=== PATIENT | male | born 1960 | race American Indian/Alaskan Native ===

== ENCOUNTER 2020-08-11 10:36 | Day surgery (SDC) | payer BC ==
[2020-08-11] MEDS ORDERED: LACTATED RINGERS 1,000 ML IV SCH (11:15)
[2020-08-11] MEDS ORDERED: MIDAZOLAM 2 MG/2 ML INJ IV ONE (11:52)
[2020-08-11] MEDS ORDERED: HYDROmorphone 1 MG/1 ML INJ IV PRN (11:53)
[2020-08-11] MEDS ORDERED: ONDANSETRON 4 MG/2 ML INJ IV PRN (11:53)
--- NOTE | 2020-08-11 11:54 | Anesthesia Day of Surgery ---
Anesthesia Day of Surgery - Day of Surgery Patient Examined: Yes Patient H&P Reviewed: Yes Patient is NPO: Yes
--- NOTE | 2020-08-11 11:54 | Anesthesia Consultation ---
Anesthesia Consult and Med Hx Date of service: 08/11/20 - Airway Anesthetic Teeth Evaluation: Chipped ROM Head & Neck: Adequate Mental/Hyoid Distance: Adequate Mallampati Class: Class II Intubation Access Assessment: Good - Pre-Operative Health Status ASA Pre-Surgery Classification: ASA1 Proposed Anesthetic Plan: General - Pulmonary Hx Smoking: No Hx Sleep Apnea: No (EMIR PRE SCREEN LOW RISK) - Cardiovascular System Hx Hypertension: No - Central Nervous System Hx Psychiatric Problems: No - Gastrointestinal Hx Gastroesophageal Reflux Disease: Yes (Occasional) - Endocrine Hx Non-Insulin Dependent Diabetes: No - Hematic Hx Anemia: No Hx Sickle Cell Disease: No - Other Systems Hx Cancer: No
[2020-08-11] MEDS ORDERED: ceFAZolin/Water 2 GM/20 ML 2 GM/20 ML SYRINGE IV ONE (11:59)
[2020-08-11] MEDS ORDERED: ceFAZolin/STERILE WATER 2 GM/20 ML SYRINGE IV NR (12:00)
[2020-08-11] MEDS ORDERED: BUPIVACAINE/PF (0.25%) 2.5 MG/ML 30 ML VIAL INFILTRATI ONE (12:16)
[2020-08-11] MEDS ORDERED: LIDOCAINE (1%) 10 MG/1 ML VIAL 20 ML MDV ONE (12:17)
[2020-08-11] MEDS ORDERED: HYDROmorphone 1 MG/1 ML INJ ONE (12:19)
[2020-08-11] MEDS ORDERED: propofoL 200 MG/20 ML VIAL IV ONE (12:19)
[2020-08-11] MEDS ORDERED: SODIUM CHLORIDE 0.9% IRR 1,000 ML BOTTLE IR ONE (13:45)
[2020-08-11] MEDS ORDERED: BACITRACIN ZINC OINT 28.4 GM TP ONE (14:25)
[2020-08-11] MEDS ORDERED: LACTATED RINGERS 1,000 ML ONE (14:29)
[2020-08-11] MEDS ORDERED: LIDOCAINE MPF (2%) 20 MG/1 ML VIAL 5 ML ONE (14:29)
[2020-08-11] MEDS ORDERED: ONDANSETRON 4 MG/2 ML INJ ONE (14:30)
--- NOTE | 2020-08-11 14:42 | Post Operative Note ---
Date of procedure: 08/11/20 Pre-op diagnosis: spermatocele mole Post-op diagnosis: same Findings: as above Procedure: spermatocelectomu exc mole prtal epidiymectomy Anesthesia: GETA Surgeon: MARCO ANTONIO MASSEY Estimated blood loss: minimal Pathology: none (spermatocele epidi) Specimen disposition: to lab Condition: stable Disposition: PACU
--- NOTE | 2020-08-11 14:44 | Discharge Summary ---
Short Stay Discharge Plan Activity: other (no straining ) Diet: low fat, low cholesterol, low salt Wound: open to air, change dressing Special Instructions: other (ice in rr and x 24 hrs ) Durable Medical Equipment Needed Upon Discharge: other (scrotal support ) Follow up with: AIDE YOUNG MD [Primary Care Provider] - 7 Days MARCO ANTONIO MASSEY MD [Staff Physician] - 08/13/20
--- NOTE | 2020-08-11 14:47 | Operative Report ---
PREOPERATIVE DIAGNOSIS: Left large scrotal mass with a mole in the right groin. POSTOPERATIVE DIAGNOSIS: Left large scrotal mass with a mole in the right groin. PROCEDURE: Excision of mole with hydrocelectomy and spermatocelectomy and partial epididymectomy. SURGEON: Dr. Pearce. ANESTHESIA: General. FINDINGS: This is a gentleman with very large 6 cm mass, left hemiscrotum, now presents for treatment. DESCRIPTION OF PROCEDURE: The patient was brought to the operating room and placed on the operating table. Following induction of anesthesia, placed in supine position, prepped and draped in usual sterile fashion. After timeout, this 8 mm mole was excised and cauterized. No sutures were placed. An oblique incision made over the left hemiscrotum and carried down to the scrotal fascia. This was dissected free. There was approximately 30 mL of clear fluid from the hydrocele. Once this was released and opened, a large spermatocele was noted with the entire epididymis draped all the way over very thinly over approximately 160 degrees of the mass. Using blunt and sharp dissection and meticulous dissection, the vasculature from the epididymis and the epididymis was from the mass. We took off the head of the epididymis with the mass. The patient tolerated the procedure well. Once we had it all dissected free and tied off all the small vessels, it was opened and removed. The patient tolerated the procedure well. The area was cauterized that needed to be and tied. Wound was irrigated and a half-inch [place] was placed through the dependent portion of the scrotum. The fascia was approximated with 3-0 chromic, skin with interrupted 3-0 and 2-0 chromic. The patient tolerated the procedure well. Minimal blood loss. He was brought to recovery in stable condition. JOB# [id number] TANMAY/MAYELA
--- NOTE | 2020-08-11 15:12 | Post Anesthesia Evaluation ---
- Post Anesthesia Evaluation Patient Participated: Yes Airway Patent: Yes Stable Respiratory Function: Yes Nausea/Vomiting: No Temp > 96.8F: Yes Pain Manageable: Yes Adequeate Hydration: Yes Anesthesia Complications: No Block Receding Appropriately: Not Applicable Patient on Ventilator: No
[2020-08-11] MEDS: HYDROmorphone 1 MG/1 ML INJ IV PRN ×2 (15:15→15:26)
[2020-08-11 17:51] VITALS: BP 127/79
== END 2020-08-11 17:50 | disposition home or self-care (01) ==
LOC: OR 10:36
PROVIDERS: ATTEND Urology
DX: N43.2 Other hydrocele (principal); N43.40 Spermatocele of epididymis, unspecified; K21.9 Gastro-esophageal reflux disease without esophagitis; Z98.890 Other specified postprocedural states
CPT/HCPCS: 54840; 55040; 88304; 88305; J0690; J1170; J2250; J2405; J2704; J7120